=== PATIENT | female | born 1995 | race Caucasian/White ===

== ENCOUNTER 2021-05-21 10:42 | Outpatient (CLI) | payer OTHER | END 2021-05-21 10:43 | disposition home or self-care (01) | LOC: CSHWCC 10:42 | PROVIDERS: ATTEND Nurse Practitioner Family | DX: T81.89XD Other complications of procedures, not elsewhere classified, subsequent encounter (principal); T88.8XXD Other specified complications of surgical and medical care, not elsewhere classified, subsequent encounter | CPT/HCPCS: 99213; G0463 ==

== ENCOUNTER 2022-08-05 08:50 | Inpatient (IN) | payer BC ==
[2022-08-05] MEDS ORDERED: Diphenoxylate HCl/Atropine Tablet PO PRN ×2 (08:52)
[2022-08-05] MEDS ORDERED: Misoprostol 200 MCG TAB PR PRN (08:52)
[2022-08-05] MEDS ORDERED: hydrALAZINE 20 MG/ML VIAL SLOW IVP PRN ×2 (08:52→18:41)
[2022-08-05] MEDS ORDERED: Butorphanol Tartrate 1 MG/ML VIAL SLOW IVP PRN (08:52)
[2022-08-05] MEDS ORDERED: Ondansetron PF 4 MG/2 ML Vial IVP PRN ×2 (08:52→18:41)
[2022-08-05] MEDS ORDERED: HYDROcodone/Acetaminophen 5/325 mg Tablet PO PRN ×3 (08:52→18:41)
[2022-08-05] MEDS ORDERED: Promethazine HCl 25 MG/ML VIAL IM PRN (08:52)
[2022-08-05] MEDS ORDERED: Lidocaine 1% (PF) 30 ML VIAL SC PRN (08:52)
[2022-08-05] MEDS ORDERED: Ibuprofen 800 MG TAB PO PRN (08:52)
[2022-08-05] MEDS ORDERED: Docusate 100 MG CAP PO PRN (08:52)
[2022-08-05] MEDS ORDERED: Acetaminophen 500 MG TAB PO PRN (08:52)
[2022-08-05] MEDS ORDERED: NS w/ Oxytocin 30 units 500 ML IV SCH ×3 (09:00→18:45)
[2022-08-05] MEDS ORDERED: Lactated Ringer's 1,000 ML IV SCH (09:00)
[2022-08-05 09:36] VITALS: BMI 34.7
[2022-08-05 09:51] LABS: Hemoglobin 9.8 g/dL (12.0-15.5); Mean Corpuscular HGB CONC 33.7 g/dL (32.0-36.0); Mean Corpuscular Hemoglobin 30.2 pg (27.0-33.0); Mean Corpuscular Volume 89.8 fl (81.6-98.3); Platelet Count 145 10x3/uL (150-450); RBC Distribution Width 14.5 % (11.5-14.5); Red Blood Cell (RBC) Count 3.24 10x6/uL (3.90-5.03); White Blood Cell (WBC) Count 6.7 10x3/uL (3.5-10.5)
[2022-08-05 10:30] LABS: HBSAg Index 0.16 S/CO (0-0.99); HIV (1/2) Antibody/Antigen Non-Reactive (NonReactive); HIV 1/2 INDEX 0.08 S/CO (<1.00); Hep B Surf Ag Non-Reactive S/CO (NonReactive)
[2022-08-05 10:33] LABS: SARS-CoV-2 NAA Rapid Test Not Detected (NotDetected)
[2022-08-05 10:46] LABS: Syphilis Antibody Nonreactive (Nonreactive); Syphilis Antibody Index 0.06 S/CO (<1.00 Non-Reactive)
[2022-08-05] MEDS ORDERED: Fentanyl 2 mcg/Bup 0.1% Cadd 100 ML ONE (12:57)
[2022-08-05] MEDS ORDERED: Boostrix 0.5 ML (Tdap) VIAL (>/=7 yrs of age) IM ONE (18:41)
[2022-08-05] MEDS ORDERED: diphenhydrAMINE 25 MG CAP PO PRN (18:41)
[2022-08-05] MEDS ORDERED: Bisacodyl 10 MG SUPP PR PRN (18:41)
[2022-08-05] MEDS ORDERED: Benzocaine-Menthol 82.5 ML CAN TOP PRN (18:41)
[2022-08-05] MEDS ORDERED: Zolpidem Tartrate 5 MG TAB PO PRN (18:41)
[2022-08-05] MEDS ORDERED: Milk Of Magnesia 30 ML UDCUP PO PRN (18:41)
[2022-08-05] MEDS ORDERED: Misoprostol 200 MCG TAB VAG PRN (18:41)
[2022-08-05] MEDS ORDERED: Lanolin Ointment 7 GM TUBE TOP PRN (18:41)
[2022-08-05] MEDS ORDERED: Preparation H Ointment 28 GM TUBE PR PRN (18:41)
[2022-08-05] MEDS: Ibuprofen 800 MG TAB PO SCH (21:06)
[2022-08-05] MEDS: Docusate 100 MG CAP PO SCH (21:06)
[2022-08-06] MEDS: Ibuprofen 800 MG TAB PO SCH ×3 (05:05→21:18)
[2022-08-06 05:09] LABS: Hemoglobin 9.1 g/dL (12.0-15.5); Mean Corpuscular HGB CONC 33.6 g/dL (32.0-36.0); Mean Corpuscular Hemoglobin 30.4 pg (27.0-33.0); Mean Corpuscular Volume 90.6 fl (81.6-98.3); Mean Platelet Volume 12.3 fl (7.4-10.4); Platelet Count 137 10x3/uL (150-450); RBC Distribution Width 14.5 % (11.5-14.5); Red Blood Cell (RBC) Count 2.99 10x6/uL (3.90-5.03); White Blood Cell (WBC) Count 9.9 10x3/uL (3.5-10.5)
[2022-08-06] MEDS: Docusate 100 MG CAP PO SCH ×2 (08:49→21:18)
[2022-08-06] MEDS: Ferrous Sulfate 325 MG TAB PO SCH ×2 (08:49→17:00)
[2022-08-06] MEDS: Prenatal Vitamin 1 TAB PO SCH (08:50)
[2022-08-06] MEDS: HYDROcodone/Acetaminophen 5/325 mg Tablet PO PRN ×2 (11:43→17:00)
[2022-08-07] MEDS: Ibuprofen 800 MG TAB PO SCH ×2 (05:20→13:31)
[2022-08-07 08:08] VITALS: BP 127/80; TEMP 97.8
[2022-08-07] MEDS: Docusate 100 MG CAP PO SCH (08:19)
[2022-08-07] MEDS: Ferrous Sulfate 325 MG TAB PO SCH ×2 (08:19→17:31)
[2022-08-07] MEDS: Prenatal Vitamin 1 TAB PO SCH (08:19)
[2022-08-07] MEDS: HYDROcodone/Acetaminophen 5/325 mg Tablet PO PRN (17:34)
== END 2022-08-07 18:00 | disposition home or self-care (01) | DRG 807 ==
LOC: CSHLD 08:50 → CSHPP 20:00
PROVIDERS: ADMIT Obstetrics & Gynecology; ATTEND Obstetrics & Gynecology
PROC: 10D07Z6 Extraction of Products of Conception, Vacuum, Via Natural or Artificial Opening (ICD-10-PCS; principal; 2022-08-05)
PROC: 0W8NXZZ Division of Female Perineum, External Approach (ICD-10-PCS; 2022-08-05)
PROC: 10907ZC Drainage of Amniotic Fluid, Therapeutic from Products of Conception, Via Natural or Artificial Opening (ICD-10-PCS; 2022-08-05)
DX: O99.02 Anemia complicating childbirth (principal); Z37.0 Single live birth; Z20.822 Contact with and (suspected) exposure to COVID-19; Z3A.38 38 weeks gestation of pregnancy; D64.9 Anemia, unspecified; Z79.899 Other long term (current) drug therapy; O76 Abnormality in fetal heart rate and rhythm complicating labor and delivery; O70.1 Second degree perineal laceration during delivery; O32.8XX0 Maternal care for other malpresentation of fetus, not applicable or unspecified
CPT/HCPCS: 36416; 51702; 85027; 86780; 86850; 86900; 86901; 87340; 87389; 88307; U0002